=== PATIENT | female | born 1990 | race Caucasian/White ===

== ENCOUNTER 2020-03-28 04:21 | Emergency (ER) | payer OTHER ==
[2020-03-28] MEDS ORDERED: Ibuprofen 800 MG TAB ONE (04:34)
[2020-03-28] MEDS ORDERED: Acetaminophen 500 MG TAB ONE (04:34)
--- NOTE | 2020-03-28 08:08 | RAD ---
RADIOGRAPH CHEST 1 VIEW: DATE: 03/28/2020 HISTORY: 29-year-old female with chest pain, fever, and cough FINDINGS: The visualized lung jewell are clear. The cardiomediastinal silhouette and hilar shadows are normal. The lateral costophrenic angles are sharp. The osseous structures appear normal. There is no pneumothorax. IMPRESSION: Negative.
[2020-03-28 12:36] LABS: SARS-CoV-2 MS2 Positive; SARS-CoV-2 N Gene Negative; SARS-CoV-2 S Gene Negative; SARS-CoV-2 by NAA Not Detected (NotDetected); SARS-CoV-2 orf1ab Negative
== END 2020-03-28 05:45 | disposition home or self-care (01) ==
LOC: ERS 04:21
DX: B34.9 Viral infection, unspecified (principal); Z20.828 Contact with and (suspected) exposure to other viral communicable diseases; J45.909 Unspecified asthma, uncomplicated; Z79.899 Other long term (current) drug therapy
CPT/HCPCS: 71045; 87635; 99284; U0003

== ENCOUNTER 2020-04-03 19:26 | Emergency (ER) | payer OTHER ==
[2020-04-03 20:34] LABS: Bacteria/HPF 3+ HPF (None Seen); Bilirubin Negative (Negative); Blood, Urine Trace (Negative); Clarity Clear (Clear); Glucose, Urine (Dipstick) Normal (Negative); Ketone, Urine Negative (Negative); Leukocyte 500 Leu/uL (Negative); Mucous/LPF Rare LPF (<2+); Nitrite 1+ (Negative); Protein, Urine (Dipstick) Negative (Neg-Trace); Specific Gravity, Urine 1.017 (1.002-1.036); Squamous Epithelial 0-3 HPF (0-3); Urobilinogen Normal mg/dL (Less than 2); WBC/HPF Greater than 50 HPF (0-3)
[2020-04-03 20:35] LABS: #Basophils 0.1 thou/uL (0.0-0.2); #Eosinphils 0.1 thou/uL (0.0-0.7); #Lymphocytes 2.7 thou/uL (1.20-3.40); #Monocytes 0.6 thou/uL (0.11-0.59); #Neutrophils 3.7 thou/uL (1.40-6.50); %Basophils 0.9 % (0.0-1.0); %Eosinophils 1.3 % (0.0-10.0); %Lymphocytes 37.6 % (21.0-51.0); %Neutrophils 52.2 % (42.0-75.0); Hemoglobin 13.7 g/dL (12.0-16.0); Mean Corpuscular HGB CONC 34.3 g/dL (32.0-36.0); Mean Corpuscular Volume 96.1 fL (78.0-98.0); Mean Platelet Volume 6.3 fL (7.4-10.4); Platelet Count 406 thou/uL (130-400); RBC Distribution Width 11.7 % (11.5-14.5); Red Blood Cell (RBC) Count 4.16 mill/uL (4.20-5.40); White Blood Cell (WBC) Count 7.2 thou/uL (4.8-10.8)
[2020-04-03] MEDS ORDERED: Ibuprofen 800 MG TAB ONE (21:23)
--- NOTE | 2020-04-04 07:12 | ULT ---
PELVIC ULTRASOUND: Date: 04/03/2020 HISTORY: Moderate abnormal vaginal bleeding x2 days and right lower quadrant pain. Right-sided pelvic pain. FINDINGS: Real-time imaging of the pelvis was obtained transabdominally, as well as with an endovaginal probe. This shows a uterus measuring 7.8 cm in length. The endometrium is 5.0 mm. Both right and left ovaries are well visualized and show small follicles. DOPPLER EVALUATION WITH SPECTRAL ANALYSIS: Normal flow shown to both adnexa. No free fluid demonstrated. IMPRESSION: Essentially unremarkable pelvic ultrasound. POS: SALTY
[2020-04-06 18:48] LABS: Chlamydia by PCR Not Detected (NotDetected); GC by PCR Not Detected (NotDetected)
== END 2020-04-03 22:26 | disposition home or self-care (01) ==
LOC: ERS 19:26
DX: N93.9 Abnormal uterine and vaginal bleeding, unspecified (principal); J45.909 Unspecified asthma, uncomplicated; Z79.899 Other long term (current) drug therapy
CPT/HCPCS: 36415; 76856; 81003; 81015; 84443; 84702; 85025; 87480; 87491; 87510; 87591; 87660

== ENCOUNTER 2020-04-27 09:07 | Emergency (ER) | payer OTHER ==
[2020-04-27] MEDS ORDERED: Azithromycin 250 MG TAB ONE (10:09)
== END 2020-04-27 10:13 | disposition home or self-care (01) ==
LOC: ERS 09:07
DX: A74.9 Chlamydial infection, unspecified (principal); J45.909 Unspecified asthma, uncomplicated; Z79.899 Other long term (current) drug therapy
CPT/HCPCS: 99283

== ENCOUNTER 2020-05-05 12:23 | Emergency (ER) | payer OTHER ==
[2020-05-05 13:32] LABS: Bilirubin Negative (Negative); Blood, Urine Negative (Negative); Clarity Clear (Clear); Glucose, Urine (Dipstick) Normal (Negative); Ketone, Urine Negative (Negative); Leukocyte Negative Leu/uL (Negative); Nitrite Negative (Negative); Protein, Urine (Dipstick) Negative (Neg-Trace); Specific Gravity, Urine 1.022 (1.002-1.036); Urobilinogen Normal mg/dL (Less than 2)
[2020-05-05 13:56] LABS: Pregnancy Test - Urine (BHCG) Negative (Negative); Pregu Control Background? CLEAR/WHITE (CLR/WHITE); Pregu Control Bar Appear? YES (CONTROL BAR); Specific Gravity 1.022 (1.002-1.036)
[2020-05-06 18:29] LABS: Chlamydia by PCR Not Detected (NotDetected); GC by PCR Not Detected (NotDetected)
== END 2020-05-05 14:32 | disposition home or self-care (01) ==
LOC: ERS 12:23
DX: N89.8 Other specified noninflammatory disorders of vagina (principal); J45.909 Unspecified asthma, uncomplicated; Z79.899 Other long term (current) drug therapy
CPT/HCPCS: 81003; 81025; 87480; 87491; 87510; 87591; 87660; 99284